=== PATIENT | female | born 1945 | race Two or more races ===

== ENCOUNTER 2020-12-22 08:00 | Inpatient (IN) | payer OTHER ==
[~2020-12-22] VITALS: Ht 149.9 cm; Wt 63.5 kg
[2020-12-22] MEDS ORDERED: LEVOXYL75 MCG PO (10:41)
[2020-12-22] MEDS ORDERED: LOSARTAN-HCTZ1 EAC2 PO (10:42)
[2020-12-22] MEDS ORDERED: MAXIMUM D3325 MCG PO (10:43)
[2020-12-22] MEDS ORDERED: ATORVASTATIN CA20 MG PO (10:43)
[2020-12-22] MEDS ORDERED: ADULT LOW DOSE81 M1 PO (10:51)
[2020-12-28] MEDS ORDERED: METAMUCIL POWD174 GM (08:04)
[2020-12-28] MEDS ORDERED: MAGNESIUM400 MG (08:04)
[2020-12-28] MEDS ORDERED: FERROUS SULFAT325 MG (08:05)
[2020-12-28] MEDS ORDERED: VITAMIN C1000 MG (08:05)
[2020-12-30] MEDS ORDERED: PERCOCET 5-3251 EACH PO (18:24)
[2020-12-30] MEDS ORDERED: ELIQUIS2.5 MG PO (18:24)
[2020-12-30] MEDS ORDERED: DUI500 PO (18:24)
== END 2020-12-30 21:16 | DRG 470 ==
LOC: SURH 12-28 05:43 → O/R 12-28 05:43 → SURH 12-28 07:00
PROVIDERS: ADMIT Orthopaedic Surgery; ATTEND Orthopaedic Surgery
PROC: 0SRD0J9 Replacement of Left Knee Joint with Synthetic Substitute, Cemented, Open Approach (ICD-10-PCS; principal; 2020-12-28 07:00)
DX: M17.12 Unilateral primary osteoarthritis, left knee (principal); D62 Acute posthemorrhagic anemia; I11.9 Hypertensive heart disease without heart failure; E03.9 Hypothyroidism, unspecified; M22.12 Recurrent subluxation of patella, left knee; Z20.822 Contact with and (suspected) exposure to COVID-19